=== PATIENT | female | born 1940 | race Caucasian/White ===

== ENCOUNTER → 2016-06-03 | Outpatient (CLI) | payer MEDICARE ==
--- NOTE | ~2016-06-03 | MR17 ---
[facility] A Service of [facility] & [facility] RADIOLOGY TEXT RESULTS PATIENT: BERNARDA FIGUEROA LOCATION: [facility] : 38 UNIT #: [id number] AGE: [address]: Orlando Ramachandran II, MD SEX: F ORDER DR: [id number] [facility] [address] [place], [place] [address] [id number] O MR#: [id number] Acc #: [id number] NAME: BERNARDA FIGUEROA : 1940 SEX: F STUDY DATE/TIME: 06/03/2016 11:36 UNIT: [facility] ROOM: STUDY DESCRIPTION: MR Brain WWo Contrast Attending Physician: Orlando Ramachandran II., M.D. Referring Physician: Orlando Ramachandran II., M.D. Ordering Physician: Orlando Ramachandran II., M.D. Primary Care Physician: Keshia Daniel A.P.R.N. MRI CENTER REPORT This report is preliminary unless electronic signature is present. EXAM MRI brain with and without, 06/03/2016 HISTORY Memory loss 6 to 8 months. Patient has fallen in the past, maybe about a month ago. History of Alzheimer's disease and hypertension. No history of cancer. COMMENT MRI of the brain was performed prior to and following intravenous administration of 16 mL MultiHance. The study is limited by patient motion artifact. No comparison film. Partly seen are postoperative changes to the upper visualized cervical spine and there is likely pannus formation at C1-2. There is no Chiari-1 malformation. There is no evidence for a recent ischemic insult on the diffusion series. Allowing for motion, no gross extraaxial fluid collection. The ventricles are normal in size for age group. There is no gross MRI evidence for recent intracranial hemorrhage. There is some old blood product deposition likely at the posterior limb of the right internal capsule consistent with a remote insult. There is approximately moderate white matter signal abnormality involving subcortical deep and periventricular white matter which is nonspecific but probably due to small vessel disease given risk factors. Small lacunar-type insult basal ganglia also. The major intracranial flow voids are grossly maintained at the base of the brain. I believe the patient has had cataract surgery bilaterally. There is probably some paranasal sinus mucosal thickening ethmoid air cells but no apparent air-fluid level and the mastoid air cells are clear. Following contrast administration, no pathologic intracranial enhancement or intracranial mass lesion is suspected. [facility] A Service of [facility] & [facility] RADIOLOGY TEXT RESULTS PATIENT: BERNARDA FIGUEROA LOCATION: [facility] : 38 UNIT #: [id number] AGE: [address]: Orlando Ramachandran II, MD SEX: F ORDER DR: There is no particular pattern of atrophy. IMPRESSION The study is motion-degraded. Allowing for this, moderate probable sequelae of small vessel disease is noted but no acute intracranial abnormality is appreciated. Nothing to suggest a recent ischemic insult and nothing to suggest hydrocephalus or extraaxial fluid collection and no intracranial mass lesion or mass effect. Dictated by... Lana Honeycutt M.D. THIS IS AN ELECTRONICALLY VERIFIED REPORT Lana Honeycutt M.D. at 06/04/2016 8:05 AM VAN/patrick TD: 06/04/2016 01:12 JOB #: [id number] MRI CENTER REPORT COPY
[2016-06-03 11:56] LABS: POC - CREATININE 1.31 mg/dL (0.44-1.03)
== END | disposition home or self-care (01) ==
LOC: CMRI 10:55
PROVIDERS: Psychiatry & Neurology Neurology
DX: R41.3 Other amnesia (principal)
CPT/HCPCS: 70553; 82565; A9577